=== PATIENT | female | born 1970 | race Native Hawaiian/Other Pacific Islander ===

== ENCOUNTER 2016-08-23 07:57 | Outpatient (CLI) | payer OTHER ==
[~2016-08-23 07:57] MED LIST: ANAS1TAB PO; AZEL0.05 OP; KETO2CRE EX; TERB250T PO; TOBRAMYCIN0.3 % OP
[2016-08-23 08:40] LABS: PLATELET COUNT 282 K/uL (152-353)
[2016-08-23 09:14] LABS: POTASSIUM 3.8 mmol/L (3.6-5.2); SODIUM 137 mmol/L (136-145)
== END 2016-08-23 19:05 | disposition home or self-care (01) ==
LOC: LABW 07:57
PROVIDERS: Family Medicine
DX: R05 Cough (principal); J02.9 Acute pharyngitis, unspecified; Z78.0 Asymptomatic menopausal state; Z85.3 Personal history of malignant neoplasm of breast; E55.9 Vitamin D deficiency, unspecified; R79.89 Other specified abnormal findings of blood chemistry
CPT/HCPCS: 36415; 80053; 80061; 81000; 82043; 82306; 82570; 83735; 84439; 84443; 84550; 85027

== ENCOUNTER 2016-10-08 17:18 | Outpatient (CLI) | payer OTHER ==
[2016-10-08 17:36] LABS: PLATELET COUNT 318 K/uL (152-353)
[2016-10-08 18:03] LABS: POTASSIUM 3.9 mmol/L (3.6-5.2); SODIUM 135 mmol/L (136-145)
== END 2016-10-08 19:36 | disposition home or self-care (01) ==
LOC: LABW 17:18 → RAD 17:18 → LABW 19:36
PROVIDERS: Family Medicine
DX: R05 Cough (principal); R06.02 Shortness of breath; R00.0 Tachycardia, unspecified; Z86.000 Personal history of in-situ neoplasm of breast
CPT/HCPCS: 80053; 84439; 84443; 84484; 85027; 93005

== ENCOUNTER 2016-10-12 17:38 | Emergency (ER) | payer OTHER ==
[~2016-10-12] VITALS: Ht 162.6 cm; Wt 54.4 kg
[2016-10-12 18:32] LABS: PLATELET COUNT 311 K/uL (152-353)
[2016-10-12 18:35] LABS: POTASSIUM 3.7 mmol/L (3.6-5.2); SODIUM 136 mmol/L (136-145)
[2016-10-12 18:51] LABS: PARTIAL THROMBOPLASTIN TIME 25.6 SECONDS (24.5-33.6)
[2016-10-12 19:38] VITALS: BP 129/72; TEMP 98.1
== END 2016-10-12 19:44 | disposition home or self-care (01) ==
LOC: ED 17:38
DX: R11.2 Nausea with vomiting, unspecified (principal); R68.89 Other general symptoms and signs; R42 Dizziness and giddiness; C50.912 Malignant neoplasm of unspecified site of left female breast; R07.89 Other chest pain
CPT/HCPCS: 36415; 80053; 81000; 82550; 82553; 84484; 85027; 85610; 85730; 93005; 99284

== ENCOUNTER 2016-11-21 11:11 | Outpatient (CLI) | payer OTHER | END 2016-11-21 12:20 | disposition home or self-care (01) | LOC: RAD 11:11 | DX: C50.812 Malignant neoplasm of overlapping sites of left female breast (principal) ==

== ENCOUNTER 2016-11-22 17:39 | Observation (INO) | payer OTHER ==
[~2016-11-22] VITALS: Ht 154.9 cm; Wt 56.4 kg
[2016-11-22 18:14] VITALS: BP 154/99; TEMP 97.6; Ht 154.9 cm; Wt 56.4 kg
[2016-11-22 19:01] LABS: PLATELET COUNT 358 K/uL (152-353)
[2016-11-22 19:18] LABS: POTASSIUM 3.6 mmol/L (3.6-5.2); SODIUM 137 mmol/L (136-145)
[2016-11-22 20:00] VITALS: BP 135/93; TEMP 98.1
[2016-11-23 00:24] VITALS: BP 130/85; TEMP 98
--- NOTE | 2016-11-23 01:57 | NUR ---
11/23/16 0155 RESTING QUEITLY WITH EYES CLOSED RSP EVEN NONLABORED PT RECEIVING CONTINOUS NEB TREATMENT.FAMILY PRESENT IN ROOM.CC
[2016-11-23] MEDS ORDERED: FAMOTIDINE40 MG PO (02:48)
[2016-11-23] MEDS ORDERED: CLARITIN10 M1 PO (02:51)
[2016-11-23] MEDS ORDERED: BENZONATATE100 MG PO (02:52)
--- NOTE | 2016-11-23 02:59 | NUR ---
11/23/16 0235 RESPIRATORY NOTIFIED OF PATIENT BEING OUT OF SOLUTION IN CONTINOUS NEB TREATMENT.RESP SAID SHE WOULD BE DOWN TO GIVE RESP TREATMENT IN A FEW MINUTES SHE WILL FILL IT UP THEN.CC
[2016-11-23 04:00] VITALS: BP 122/79; TEMP 98.1
--- NOTE | 2016-11-23 04:34 | NUR ---
11/23/16 0320 RESPIRATORY TOOK PATEINT OFF CONTINOUS NEB TREATMENT.PT PUT ON 02 2LP TOLERATING WELL.BEDSIDE COMMODE PLACED AT BEDSIDE DUE TO PATIENT GETTING OUT OF BED AND GETTING SHORT OF BREATH AND COUGHING.CC
[2016-11-23 05:26] LABS: PLATELET COUNT 354 K/uL (152-353)
[2016-11-23 05:31] LABS: POTASSIUM 3.7 mmol/L (3.6-5.2)
--- NOTE | 2016-11-23 06:00 | NUR ---
11/23/16 0550 PULSE RECHECKED AFTER RECEIVING BREATHING TREATMENTS PULSE 130.NAD PER PaTEINT WILL REEVALUATE PULSE.CC
--- NOTE | 2016-11-23 06:53 | NUR ---
11/23/16 PULSE RECHECKED STARTING TO COME DOWN 124.CC
[2016-11-23 08:00] VITALS: BP 116/77; TEMP 98.3
[2016-11-23 12:13] VITALS: BP 135/85; TEMP 98.2
[2016-11-23 16:00] VITALS: BP 135/85; TEMP 98.5
--- NOTE | 2016-11-23 16:54 | NUR ---
TB SKIN TEST DONE BY Nisha EDWARDS RN 11/23/16 @ 1736 TO RIGHT INNER FOREARM, CIRCLED WITH MARKER. TO BE READ ON FRIDAY, NOVEMBER 25, 2016 BY HOA
== END 2016-11-23 19:00 | disposition home or self-care (01) ==
LOC: MED/SURG 17:39
PROVIDERS: Emergency Medicine; ADMIT Family Medicine
DX: J90 Pleural effusion, not elsewhere classified (principal); J18.8 Other pneumonia, unspecified organism; R06.02 Shortness of breath; R00.0 Tachycardia, unspecified; R06.09 Other forms of dyspnea; B37.89 Other sites of candidiasis; R13.12 Dysphagia, oropharyngeal phase; C78.7 Secondary malignant neoplasm of liver and intrahepatic bile duct; C78.00 Secondary malignant neoplasm of unspecified lung; Z85.3 Personal history of malignant neoplasm of breast; C50.812 Malignant neoplasm of overlapping sites of left female breast
CPT/HCPCS: 36415; 36591; 80053; 81000; 83735; 85027; 87040; 93005; 94640; 94644; 94664; 94760; 96365; 96366; 96367; 96375; 99220; G0378; G0379; J2930; J3490; Q9963

== ENCOUNTER 2016-11-23 19:01 | Outpatient (CLI) | payer OTHER ==
[~2016-11-23 19:01] MED LIST changes: +BENZONATATE100 MG PO; +CLARITIN10 M1 PO; +FAMOTIDINE40 MG PO
== END 2016-11-23 20:21 | disposition short-term general hospital (02) ==
LOC: AMB 19:01
DX: J90 Pleural effusion, not elsewhere classified (principal); J18.8 Other pneumonia, unspecified organism; R06.02 Shortness of breath; R00.0 Tachycardia, unspecified; R06.09 Other forms of dyspnea; B37.89 Other sites of candidiasis; R13.12 Dysphagia, oropharyngeal phase; C78.7 Secondary malignant neoplasm of liver and intrahepatic bile duct; C78.00 Secondary malignant neoplasm of unspecified lung; Z85.3 Personal history of malignant neoplasm of breast
CPT/HCPCS: A0425; A0427

== ENCOUNTER 2017-05-31 08:35 | Outpatient (CLI) | payer OTHER ==
[2017-05-31 09:22] LABS: PLATELET COUNT 319 K/uL (152-353)
[2017-05-31 09:41] LABS: POTASSIUM 4.3 mmol/L (3.6-5.2); SODIUM 139 mmol/L (136-145)
== END 2017-05-31 09:35 | disposition home or self-care (01) ==
LOC: LABW 08:35
PROVIDERS: Family Medicine
DX: R05 Cough (principal); J98.4 Other disorders of lung; Z85.3 Personal history of malignant neoplasm of breast; E55.9 Vitamin D deficiency, unspecified; E78.00 Pure hypercholesterolemia, unspecified
CPT/HCPCS: 36415; 80053; 80061; 81000; 82306; 82607; 82746; 83735; 84439; 84443; 84481; 85027